=== PATIENT | female | born 1985 | race Caucasian/White ===

== ENCOUNTER → 2020-03-03 14:14 | Outpatient (CLI) | payer BC, SELFPAY ==
--- NOTE | ~2020-03-03 | XR_ITS ---
XR thoracic spine 3V DATE: 03/03/2020 15:03 INDICATION: Back pain TECHNIQUE: AP, lateral, swimmer views COMPARISON: None FINDINGS: There is mild dextroscoliosis. No fracture or dislocation or bone destruction. The thorac ic pedicles are intact. No paraspinal soft tissue swelling. IMPRESSION: Mild dextroscoliosis Reviewed, dictated and finalized at location B. IMPRESSION: Mild dextroscoliosis
--- NOTE | ~2020-03-03 | XR_ITS ---
XR lumbar spine 2-3V DATE: 03/03/2020 15:03 TECHNIQUE: Acute right sided low back pain with right sided sciatica COMPARISON: None FINDINGS: Normal alignment of the lumbar spine. There is mild degenerative spurring and mild loss of height of of the lumbar interspaces. No fracture or bone destruction. The lumbar pedicles are inta ct. No spondylolisthesis. The sacroiliac joints are normal. IMPRESSION: Mild degenerative disc disease Reviewed, dictated and finalized at location B.
== END ==
PROVIDERS: PCP Physician Assistant; Visit Provider Physician Assistant
DX: M54.41 Lumbago with sciatica, right side (principal); M51.36 Other intervertebral disc degeneration, lumbar region
CPT/HCPCS: 72072; 72100

== ENCOUNTER 2021-10-01 13:18 | Emergency (ER) | payer BC, SELFPAY ==
[2021-10-01 13:30] VITALS: BP 143/96; PULSE 97; RESP 16; TEMP 36.6; O2SAT 100
--- NOTE | 2021-10-01 14:01 | ED.GENADULT ---
HPI - General Adult General Chief complaint: Extremity Injury, Upper Stated complaint: BUMP ON L WRIST Time Seen by Provider: 10/01/21 13:57 Source: patient and RN notes reviewed Mode of arrival: ambulatory Limitations: no limitations History of Present Illness HPI narrative: Patient presents today complaining of a, bump on her dorsum of her left wrist that she noticed today. If it is a little sore and she currently rates the pain 2/10. She has not tried any [id number] interventions prior to arrival. Denies any injury or trauma. MD complaint: Bump on wrist Related Data Home Medications Medication Instructions Recorded Confirmed buspirone mg 10/01/21 clonazepam 10/01/21 drospirenone-ethinyl estradiol tablet 10/01/21 escitalopram oxalate mg 10/01/21 omeprazole 10/01/21 Allergies Allergy/AdvReac Type Severity Reaction Status Date / Time cefaclor Allergy Unknown Verified 05/24/17 10:13 Review of Systems Review of Systems: CONSTITUTIONAL: Denies body aches, fever, chills, or sweats. EYES: Denies visual changes, redness, or discharge. ENT: Denies rhinorrhea, congestion, sore throat, or otalgia. CARDIOVASCULAR: Denies chest pain, palpitations, or edema. RESPIRATORY: Denies cough or dyspnea. GASTROINTESTINAL: Denies abdominal pain, nausea, vomiting, or diarrhea. GENITOURINARY: Denies dysuria or hematuria. SKIN: Denies rash, itching, or wounds. MUSCULOSKELETAL: Denies back pain, joint pain, or myalgia. Bump on wrist NEUROLOGIC: Denies headache, numbness, tingling, or weakness. PSYCH: Denies depression or anxiety. [facility] Family History Family History Other Diabetes mellitus Family history of allergic disorder Family history of malignant neoplasm Social History Social History Smoking status: Never smoker Alcohol intake: never Comments At time of signature, I have reviewed and agree with nursing past medical, surgical, social and family history unless otherwise noted. Please see nursing chart for further information. There is no relevant family history pertinent to the presenting complaint Exam Narrative: GENERAL: Well-appearing, well-nourished, and in no acute distress. HEAD: Normocephalic, atraumatic. EYES: EOMI. No redness or drainage. Conjunctivae normal. ENT: Mucous membranes pink and moist. NECK: Normal AROM. CHEST: No respiratory distress. EXTREMITIES: 1 cm round firm nodule to the proximal dorsum of the left hand, consistent with a ganglion cyst. Mildly tender to palpation. Distal sensation intact. Capillary refill normal. Radial pulse normal. Full range of motion of all fingers. No erythema or ecchymosis surrounding the nodule. SKIN: Warm, dry, no rash. Capillary refill normal. Normal skin turgor. NEURO: No focal deficits. Alert and oriented x3. Gait steady. PSYCH: Normal affect. No signs of depression or anxiety. Course Course Level of Care: Express Care Visit Vital Signs Vital signs: Vital Signs Temperature 98 F 10/01/21 13:30 Pulse Rate 97 10/01/21 13:30 Respiratory Rate 16 10/01/21 13:30 Blood Pressure 143/96 H 10/01/21 13:30 Pulse Oximetry 100 10/01/21 13:30 Temperature 98 F 10/01/21 13:30 Pulse Rate 97 10/01/21 13:30 Respiratory Rate 16 10/01/21 13:30 Blood Pressure 143/96 H 10/01/21 13:30 Pulse Oximetry 100 10/01/21 13:30 Reviewed. Pt has been instructed to follow up with her PCP regarding her elevated blood pressure today. Medical Decision Making Differential Diagnosis Differential Diagnosis: Ganglion cyst, abscess Vital Signs Vital Signs: Vital Signs Temperature 98 F 10/01/21 13:30 Pulse Rate 97 10/01/21 13:30 Respiratory Rate 16 10/01/21 13:30 Blood Pressure 143/96 H 10/01/21 13:30 Pulse Oximetry 100 10/01/21 13:30 Temperature 98 F 10/01/21 13:30 Pulse Rate
== END 2021-10-01 14:09 | disposition home or self-care (01) ==
PROVIDERS: Emergency Provider Nurse Practitioner; PCP Physician Assistant
DX: M67.432 Ganglion, left wrist (principal)
CPT/HCPCS: 99202; G0463